=== PATIENT | male | born 1970 | race Caucasian/White ===

== ENCOUNTER → 2019-12-31 14:59 | Outpatient (CLI) | payer OTHER, SELFPAY ==
--- NOTE | 2019-12-31 | DI.RAD.S_ITS ---
PROCEDURE: XR CHEST 2V INDICATIONS: CHRONIC COUGH TECHNIQUE: 2 views of the chest were acquired. COMPARISON: None. FINDINGS: Surgical changes and devices: None. Lungs and pleura: Lungs are clear. A presumed right-sided nipple shadow incidentally noted No pleural effusions or pneumothorax. Mediastinum: Mediastinal contours are normal. Heart size is normal. Bones and chest wall: No suspicious bony abnormalities. Soft tissues appear unremarkable. IMPRESSION: No acute disease Dictated by: Pineda Toscano M.D. on 12/31/2019 at 16:31 Approved by: Pineda Toscano M.D. on 12/31/2019 at 16:34
== END ==
PROVIDERS: PCP Family Medicine; Referring Provider Family Medicine; Visit Provider Family Medicine
DX: R05 Cough (principal)
CPT/HCPCS: 71046

== ENCOUNTER → 2020-08-01 14:07 | Outpatient (CLI) | payer OTHER, SELFPAY ==
[2020-08-01 15:14] LABS: Add Manual Diff / Slide Review NO; Basophils Absolute Auto 0 /uL (0-100); Basophils Percent Auto 0.7 % (0-2); Eosinophils Absolute Auto 100 /uL (0-450); Eosinophils Percent Auto 1.5 % (2-4); Hematocrit 45.1 % (41-53); Hemoglobin 15.3 g/dL (13.5-17.5); Lymphocytes Absolute Auto 2300 /uL (1100-4500); Lymphocytes Percent Auto 32.7 % (25-40); Mean Corpuscular Hemoglobin 30.5 PG (26-34); Mean Corpuscular Volume 89.7 fL (80-100); Monocytes Absolute Auto 500 /uL (0-900); Monocytes Percent Auto 7.4 % (3-14); Neutrophils Absolute Auto 4000 /uL (1500-7000); Neutrophils Percent Auto 57.7 % (50-75); Platelet Count 277 X10^3/uL (150-400); Red Blood Cell Count 5.02 X10^6/uL (4.5-5.9); Red Cell Distribution Width 13.1 % (11.6-14.8); White Blood Cell Count 6.9 X10^3/uL (4.5-11.0)
[2020-08-01 15:26] LABS: Hemoglobin A1C% w Est Avg Glu 5.6 % (4.0-6.0)
[2020-08-01 16:06] LABS: Alanine Aminotransferase 30 IU/L (<50); Albumin 4.5 g/dL (3.5-5.0); Albumin Globulin Ratio 1.7 (1.0-2.8); Alkaline Phosphatase 40 U/L (38-126); Aspartate Aminotransferase 29 IU/L (17-59); BUN Creatinine Ratio 13.3 (6-22); Bilirubin Total 1.1 mg/dL (0.2-1.3); Blood Urea Nitrogen 12 mg/dL (9-20); Calcium 9.4 mg/dL (8.4-10.2); Carbon Dioxide 31 mmol/L (22-32); Chloride 101 mmol/L (98-107); Cholesterol 211 mg/dL (140-199); Estimated Glomerular Filt Rate > 60.0 mL/min (>60); Globulin 2.7 g/dL (1.7-4.1); Glucose 79 mg/dL (70-100); HDL Cholesterol 47 mg/dL (40-60); HEMOLYSIS < 15 (0-50); LDL Cholesterol Calculated 149 mg/dL (<100); Potassium 4.4 mmol/L (3.4-5.1); Sodium 140 mmol/L (137-145); Total Protein 7.2 g/dL (6.3-8.2); Triglycerides 75 mg/dL (35-150)
[2020-08-01 16:33] LABS: TSH w/ Reflex to FT4 0.99 uIU/mL (0.47-4.68)
== END ==
PROVIDERS: PCP Family Medicine; Referring Provider Family Medicine; Visit Provider Family Medicine
DX: Z00.00 Encounter for general adult medical examination without abnormal findings (principal)
CPT/HCPCS: 36415; 80053; 80061; 83036; 84443; 85025

== ENCOUNTER → 2020-08-24 10:32 | Outpatient (CLI) | payer OTHER, SELFPAY ==
[2020-08-25 14:03] LABS: COVID19 Sendout Not Detected (Not Detect)
== END ==
PROVIDERS: PCP Family Medicine; Visit Provider Nurse Practitioner
DX: J02.9 Acute pharyngitis, unspecified (principal); R05 Cough; R09.81 Nasal congestion; R50.9 Fever, unspecified; R52 Pain, unspecified; R53.83 Other fatigue
CPT/HCPCS: 87635

== ENCOUNTER 2021-05-15 15:37 | Emergency (ER) | payer OTHER, SELFPAY ==
[2021-05-15 15:43] VITALS: BP 132/79; PULSE 108; RESP 15; TEMP 36.6; O2SAT 96; BMI 25.1
== END 2021-05-15 17:56 | disposition left against medical advice (07) ==
PROVIDERS: Emergency Provider Emergency Medicine; PCP Family Medicine
DX: R10.9 Unspecified abdominal pain (principal)
CPT/HCPCS: 36415; 99283

== ENCOUNTER 2025-06-30 13:34 | Emergency (ER) | payer BC, SELFPAY ==
[2025-06-30] VITALS (7 sets, daily range): BP systolic 105–154; BP diastolic 71–92; PULSE 67–86; RESP 16–20; TEMP 37.1; O2SAT 91–100; BMI 25.7
--- NOTE | 2025-06-30 13:59 | ED.ABDPAIN ---
HPI - Abdominal Pain <Eduarda Santana PA-C - Last Filed: 06/30/25 18:43> General Chief Complaint: Abdominal Pain Stated Complaint: Possible hernia Time Seen by Provider: 06/30/25 13:54 History of Present Illness HPI narrative: Mr. Linares is a pleasant 54-year-old male with a past medical history of diverticulitis who presents to the emergency department for left lower quadrant abdominal pain, bulging, constipation x1 week. Patient reports he has had bulging in his lower abdomen, concerned for hernia, for the last 5 years. It has not caused him any issues though. However this past week he has been extremely constipated despite having a liquid diet and using stool softeners. He has noticed that this bulge has got and more prominent. It is soft, nontender, non erythematous. He denies any burning or difficulty with urination but does report significant pain when his bladder is full. He denies fevers, chills, chest pain, shortness of breath, black or bloody stools. He does have surgical history of hemorrhoidectomy and prior CT imaging revealing diverticulitis but was told by a surgeon that he did not have this. Related Data Home Medications ?Medication ?Instructions ?Recorded ?Confirmed ascorbic acid (vitamin C) 500 mg 500 mg PO DAILY 06/26/20 07/04/25 capsule,extended release cholecalciferol (vitamin D3) 125 125 mcg PO DAILY 06/26/20 07/04/25 mcg (5,000 unit) capsule Previous Rx's ?Medication ?Instructions ?Recorded ciprofloxacin HCl 250 mg tablet 250 mg PO BID #14 tabs 07/04/25 dicyclomine 20 mg tablet 20 mg PO TID PRN abdominal pain 07/04/25 #30 tabs metronidazole 250 mg tablet 250 mg PO Q12H #14 tabs 07/04/25 turmeric 400 mg capsule 200 mg (1/2 x 400 mg) PO .qd #1 cap 07/04/25 Allergies Allergy/AdvReac Type Severity Reaction Status Date / Time No Known Drug Allergies Allergy Verified 07/04/25 08:18 Review of Systems <Eduarda Santana PA-C - Last Filed: 06/30/25 18:43> Review of Systems ROS Unobtainable: All systems reviewed & are unremarkable except as noted in HPI and below Patient History <Eduarda Santana PA-C - Last Filed: 06/30/25 18:43> Medical History Dyspepsia Direct left inguinal hernia Hyperlipidemia Contraceptive education Tobacco abuse Well adult Surgical History Anesthesia History of appendectomy (~1975) Family History Father Hypertension Mother Arthritis Grandmother Cancer Hypertension Stroke Social History Tobacco: How many years used: 30 quit status: has quit before second hand exposure: No alcohol intake: current (2-3 drinks every 2 months or more ) substance use type: does not use alcohol intake frequency: holidays/special occasions only Exam <Eduarda Santana PA-C - Last Filed: 06/30/25 18:43> Narrative Exam Narrative: GENERAL: 54 year old patient appears stated age. Well-developed patient, in no acute distress. HEAD: Atraumatic. Normocephalic. EYES: No scleral icterus. No injection or drainage. NECK: Trachea midline. Cervical ROM intact. CARDIOVASCULAR: Regular rate and rhythm. RESPIRATORY: Nonlabored respirations. ?Speaking in clear, full sentences. ?Clear to auscultation. Breath sounds equal bilaterally. No wheezes, rales, or rhonchi. ? GASTROINTESTINAL: Abdomen soft, non-tender, nondistended. Bowel sounds present. He does have a bulge in the left lower quadrant of the abdomen/inguinal region that is soft and easily compressible. EXTREMITIES: No LE edema. NEURO: AOx3. ?Clear speech. ?Moves all 4 extremities appropriately. SKIN: No rash or erythema of visible areas Initial Vital Signs Initial Vital Signs: Vital Signs Temperature 98.8 F 06/30/25 13:42 Pulse Rate 84 06/30/25 13:42 Respiratory Rate 16 06/30/25 13:42 Blood Pressure 121/78 06/30/25 13:42 Pulse Oximetry 100 06/30/25 13:42 Oxygen Delivery Method Room Air 06/30/25 13:42 <Viridiana Sosa MD - Last Filed: 07/05/25 09:31> Initial Vital Signs Initial Vital Signs: Vital Signs Temperature 98.8 F 06/30/25 13:42 Pulse Rate 84 06/30/25 13:42 Respiratory Rate 16 06/30/25 13:42 Blood Pressure 121/78 06/30/25 13:42 Pulse Oximetry 100 06/30/25 13:42 Oxygen Delivery Method Room Air 06/30/25 13:42 Course <Eduarda Santana PA-C - Last Filed: 06/30/25 18:43> Orders Ordered: Discontinued Medications Piperacillin Sod/Tazobactam (Sod 4.5 gm/ Sodium Chloride) 100 mls @ 200 mls/hr IV NOW ONE Stop: 06/30/25 15:25 Last Infusion: 06/30/25 16:29 Dose: Infused Documented By: Admin: 06/30/25 15:53 Dose: 200 mls/hr Documented By: FRANCISCO Vital Signs Vital signs: Vital Signs - 8 hr 06/30/25 13:42 06/30/25 15:36 06/30/25 15:37 Temperature 98.8 F Pulse Rate 84 86 Respiratory Rate 16 16 Blood Pressure 121/78 154/92 H Pulse Oximetry 100 91 Oxygen Delivery Method Room Air 06/30/25 15:37 06/30/25 15:39 06/30/25 15:39 Temperature Pulse Rate 82 77 Respiratory Rate Blood Pressure 136/84 Pulse Oximetry 97 100 Oxygen Delivery Method 06/30/25 16:00 06/30/25 16:00 06/30/25 16:30 Temperature Pulse Rate 77 Respiratory Rate 16 Blood Pressure 125/77 105/71 Pulse Oximetry 99 Oxygen Delivery Method 06/30/25 16:30 06/30/25 17:00 06/30/25 17:00 Temperature Pulse Rate 67 68 Respiratory Rate 16 20 Blood Pressure 115/71 Pulse Oximetry 96 97 Oxygen Delivery Method <Viridiana Sosa MD - Last Filed: 07/05/25 09:31> Orders Ordered: Discontinued Medications Piperacillin Sod/Tazobactam (Sod 4.5 gm/ Sodium Chloride) 100 mls @ 200 mls/hr IV NOW ONE Stop: 06/30/25 15:25 Last Infusion: 06/30/25 16:29 Dose: Infused Documented By: Admin: 06/30/25 15:53 Dose: 200 mls/hr Documented By: AI Vital Signs Vital signs: Vital Signs - 8 hr 06/30/25 13:42 06/30/25 15:36 06/30/25 15:37 Temperature 98.8 F Pulse Rate 84 86 Respiratory Rate 16 16 Blood Pressure 121/78 154/92 H Pulse Oximetry 100 91 Oxygen Delivery Method Room Air 06/30/25 15:37 06/30/25 15:39 06/30/25 15:39 Temperature Pulse Rate 82 77 Respiratory Rate Blood Pressure 136/84 Pulse Oximetry 97 100 Oxygen Delivery Method 06/30/25 16:00 06/30/25 16:00 06/30/25 16:30 Temperature Pulse Rate 77 Respiratory Rate 16 Blood Pressure 125/77 105/71 Pulse Oximetry 99 Oxygen Delivery Method 06/30/25 16:30 06/30/25 17:00 06/30/25 17:00 Temperature Pulse Rate 67 68 Respiratory Rate 16 20 Blood Pressure 115/71 Pulse Oximetry 96 97 Oxygen Delivery Method MDM - Abdominal Pain <Eduarda Santana PA-C - Last Filed: 06/30/25 18:43> Medical Records Attestation: I reviewed the patient's medical records. Medical records narrative: Reviewed surgery note, Dr. Vidales, 05/28/21, with a CT abdomen and pelvis revealing markedly thickened sigmoid colon with inflammatory change most consistent with colitis secondary to diverticulitis. 1.3 cm right lower lobe nodule as well. Lab Data 06/30/25 14:00 06/30/25 14:00 Labs: Lab Results 06/30/25 Range/Units 14:00 WBC 11.9 H (4.5-11.0) X10^3/uL RBC 4.63 (4.5-5.9) X10^6/uL Hgb 14.8 (13.5-17.5) g/dL Hct 42.1 (41-53) % MCV 90.8 (80-100) fL MCH 32.0 (26-34) PG MCHC 35.2 (30-36) % RDW 12.7 (11.6-14.8) % Plt Count 334 (150-400) X10^3/uL Neut % (Auto) 77.4 H (50-75) % Lymph % (Auto) 13.8 L (25-40) % [place] % (Auto) 8.0 (3-14) % Eos % (Auto) 0.3 L (2-4) % Baso % (Auto) 0.5 (0-2) % Neut # (Auto) 9200 H (1125-7949) /uL Lymph # (Auto) 1600 (3001-4233) /uL [place] # (Auto) 1000 H (0-900) /uL Eos # (Auto) 0 (0-450) /uL Baso # (Auto) 100 (0-100) /uL Sodium 140 (137-145) mmol/L Potassium 4.0 (3.4-5.1) mmol/L Chloride 101 (98-107) mmol/L Carbon Dioxide 29 (22-32) mmol/L BUN 9 (9-20) mg/dL Creatinine 0.85 (0.66-1.25) mg/dL Estimated GFR > 60 (>60) mL/min BUN/Creatinine Ratio 10.6 (6-22) Glucose 98 (70-99) mg/dL Calcium 9.4 (8.4-10.2) mg/dL Total Bilirubin 0.9 (0.2-1.3) mg/dL AST 25 (17-59) IU/L ALT 22 (<50) IU/L Alkaline Phosphatase 50 (38-126) U/L Total Protein 7.9 (6.3-8.2) g/dL Albumin 4.4 (3.5-5.0) g/dL Globulin 3.5 (1.7-4.1) g/dL Albumin/Globulin Ratio 1.3 (1.0-2.8) Lipase 112 (23-300) U/L Ur Bilirubin Confirm Negative (Negative) Urine RBC None seen (0-5/HPF) Urine WBC 1-5/hpf (0-5/HPF) Ur Squamous Epith Cells None seen (0-5/HPF) Urine Bacteria None seen (None) Ur Culture Indicated? Cult not indicated Vol Urine Centrifuged Low vol <10ml (spun) A Point of care testing: Urine Dip Bedside Urine Glucose Negative Bedside Urine Bilirubin + 1 Bedside Urine Ketone +/- 5 Urine Specific [place] 1.025 Bedside Urine Occult Blood - Negative Bedside Urine pH 6.0 Bedside Urine Protein +/- 15 Bedside Urine Urobilinogen +/- 1mg Bedside Urine Nitrite - Negative Bedside Urine Leukocytes +/- [address] scan - abdomen/pelvis: Radiologist's Impression: PROCEDURE: CT ABDOMEN PELVIS W CON INDICATIONS: LLQ abd pain bulging; constipation; hernia/diverticulitis? TECHNIQUE: After the administration of intravenous contrast, axial sections acquired from the lung bases to the pubic symphysis. Coronal and sagittal reformats were performed. For radiation dose reduction, the following was used: automated exposure control, adjustment of mA and/or kV according to patient size. COMPARISON: [facility], CT, CT ABDOMEN PELVIS WITH CONTRAST, 05/15/2021, 23:53. FINDINGS: Image quality: Diagnostic. Lower Chest: Lobular solid nodule within the right lower lobe measuring 1.3 cm, unchanged in measurements from 05/15/2021. 05/15/2021. ABDOMEN: Liver: No solid mass. Gallbladder: No radiopaque gallstones or wall thickening. Biliary ducts: No biliary dilation. Pancreas: No ductal dilation. Spleen: Size is within normal limits. Adrenal Glands: No adrenal nodules. Kidneys and Ureters: No hydronephrosis. No solid mass. No complex renal cystic lesion which requires follow up. Stomach and Bowel: Significant wall thickening with pericolonic edema within surrounding sigmoid colon. A few small foci of air adjacent to the inflamed areas with slight fluid suggesting contained perforation. No drainable organized fluid collection is present. of Peritoneum: No abnormal intraperitoneal fluid. No free air. Ventral Wall: No significant ventral hernia. Abdominal Nodes: No retroperitoneal or mesenteric adenopathy by size criteria. Vessels: Aorta and inferior vena cava are normal in size. PELVIS: Pelvic Organs: Unremarkable. Bladder: No bladder wall thickening, accounting for underdistention. Pelvic Nodes: No enlarged lymph nodes. Miscellaneous: No inguinal hernias are seen. Bones: No aggressive osseous abnormality. IMPRESSION: Contained acute sigmoid diverticulitis. Dictated by: Arnoldo Nguyen M.D. on 06/30/2025 at 14:07 Approved by: Arnoldo Nguyen M.D. on 06/30/2025 at 14:15 MDM Narrative Medical decision making narrative: 54-year-old male with a past medical history of diverticulitis who presents to the emergency department for left lower quadrant abdominal pain, bulging, constipation x1 week. Differential diagnosis includes but isn't limited to inguinal hernia, constipation, diverticulitis, colitis, diverticulosis, UTI, etc. On exam patient is in no acute distress, nontoxic-appearing, all vital signs within normal limits. Abdomen is soft and nontender, he does have a bulge in the left inguinal region that is soft and reducible, likely hernia but not concerning for strangulation or incarceration clinically. Given his pain, constipation, worsening hernia, will obtain CT AP. He declines the need for medication at this time. Labs reveal slightly elevated WBC at 11.9, hemoglobin 14.8 hematocrit 42.1. Platelets 334. Normal electrolytes, renal function, liver enzymes. UA with some signs of possible dehydration/contamination. CT reveals contained acute sigmoid diverticulitis, there are a few small foci of air adjacent to the inflamed areas with slight fluid suggesting contained perforation. Wilber ordered. 1530: Spoke with on-call gen surg Dr. Jovel. States patient can go home on 2 weeks of oral antibiotics, pain control, MiraLax if his symptoms are under control. No surgical intervention recommended at this time. Patient can not go home he should be admitted to the hospital obs and he will consult. Patient would like to be discharged home. His abdominal exam is nonsurgical. Recommended supportive care including liquid diet, rest, ibuprofen Tylenol for pain, MiraLax daily. He was prescribed Augmentin for 2 weeks. And to follow up with the PCP. Discussed very strict ED return precautions including return for any new or worsening symptoms including pain, fevers, abnormal bowel movements or any other concerns. Patient his verbalized understanding of all information agreeable with the plan. He is stable for discharge home. <Viridiana Sosa MD - Last Filed: 07/05/25 09:31> Lab Data Labs: Lab Results 06/30/25 Range/Units 14:00 WBC 11.9 H (4.5-11.0) X10^3/uL RBC 4.63 (4.5-5.9) X10^6/uL Hgb 14.8 (13.5-17.5) g/dL Hct 42.1 (41-53) % MCV 90.8 (80-100) fL MCH 32.0 (26-34) PG MCHC 35.2 (30-36) % RDW 12.7 (11.6-14.8) % Plt Count 334 (150-400) X10^3/uL Neut % (Auto) 77.4 H (50-75) % Lymph % (Auto) 13.8 L (25-40) % [place] % (Auto) 8.0 (3-14) % Eos % (Auto) 0.3 L (2-4) % Baso % (Auto) 0.5 (0-2) % Neut # (Auto) 9200 H (8816-6447) /uL Lymph # (Auto) 1600 (3686-4960) /uL [place] # (Auto) 1000 H (0-900) /uL Eos # (Auto) 0 (0-450) /uL Baso # (Auto) 100 (0-100) /uL Sodium 140 (137-145) mmol/L Potassium 4.0 (3.4-5.1) mmol/L Chloride 101 (98-107) mmol/L Carbon Dioxide 29 (22-32) mmol/L BUN 9 (9-20) mg/dL Creatinine 0.85 (0.66-1.25) mg/dL Estimated GFR > 60 (>60) mL/min BUN/Creatinine Ratio 10.6 (6-22) Glucose 98 (70-99) mg/dL Calcium 9.4 (8.4-10.2) mg/dL Total Bilirubin 0.9 (0.2-1.3) mg/dL AST 25 (17-59) IU/L ALT 22 (<50) IU/L Alkaline Phosphatase 50 (38-126) U/L Total Protein 7.9 (6.3-8.2) g/dL Albumin 4.4 (3.5-5.0) g/dL Globulin 3.5 (1.7-4.1) g/dL Albumin/Globulin Ratio 1.3 (1.0-2.8) Lipase 112 (23-300) U/L Ur Bilirubin Confirm Negative (Negative) Urine RBC None seen (0-5/HPF) Urine WBC 1-5/hpf (0-5/HPF) Ur Squamous Epith Cells None seen (0-5/HPF) Urine Bacteria None seen (None) Ur Culture Indicated? Cult not indicated Vol Urine Centrifuged Low vol <10ml (spun) A Point of care testing: Urine Dip Bedside Urine Glucose Negative Bedside Urine Bilirubin + 1 Bedside Urine Ketone +/- 5 Urine Specific [place] 1.025 Bedside Urine Occult Blood - Negative Bedside Urine pH 6.0 Bedside Urine Protein +/- 15 Bedside Urine Urobilinogen +/- 1mg Bedside Urine Nitrite - Negative Bedside Urine Leukocytes +/- 15 Esterase Discharge Plan Departure Patient Disposition: Home Clinical Impression: Diverticulitis Instructions: DI for Diverticulitis Activity Restrictions/Additional Instructions: Dear Mr. Linares, Thank you for coming to the emergency department. Today you were evaluated for constipation, left lower abdominal bulging and pain. CT scan revealed diverticulitis with a possible small perforation that is contained. I spoke with our on-call general surgeon, Dr. Jovel. At this time there is no indication for emergency surgery and you can be treated with 2 weeks of oral antibiotics. It is also very important to take MiraLax daily to help soften stools, you may also use ibuprofen and Tylenol if needed for pain. I do recommend a clear liquid diet for at least the next 24 hours, followed by 2-3 days of a normal liquid diet and then increasing to a soft and normal diet as tolerated. Please follow up with your primary care doctor. Please return to the emergency department if you develop fevers, severe pain, persistent vomiting, black or bloody bowel movements or any other concerns. Please follow up with your primary care doctor within the next 2-3 days for ER follow-up. (If you do not have a PCP you can call [phone]. ?to schedule an appointment with an [facility] Primary Care Provider) IF YOU DEVELOP ANY NEW OR WORSENING SYMPTOMS, RETURN TO THE ER! Please read the attached instructions, they highlight more specific treatments and interventions for you at home. Thank you for letting me participate in your care, Eduarda Santana PA-C Prescriptions: No Action turmeric 400 mg capsule 200 mg PO .qd Qty: 1 0RF metronidazole 250 mg tablet 250 mg PO Q12H Qty: 14 0RF ciprofloxacin HCl 250 mg tablet 250 mg PO BID Qty: 14 0RF dicyclomine 20 mg tablet 20 mg PO TID PRN (Reason: abdominal pain) Qty: 30 1RF Rx Instructions: Take as needed with meals cholecalciferol (vitamin D3) 125 mcg (5,000 unit) capsule 125 mcg PO DAILY ascorbic acid (vitamin C) 500 mg capsule, extended release 500 mg PO DAILY Referrals: Jose Cody, DO [Primary Care Provider, Family Practice] Stand Alone Forms: Patient Portal/API, Work Release Note ED Sign-out <Viridiana Sosa MD - Last Filed: 07/05/25 09:31> Cosign ED Attending Cosmary louature Attestation: I was immediately available in the department for consultation throughout this patient's visit. Viridiana Sosa MD
--- NOTE | 2025-06-30 14:09 | DI.CT.S_ITS ---
PROCEDURE: CT ABDOMEN PELVIS W CON INDICATIONS: LLQ abd pain bulging; constipation; hernia/diverticulitis? TECHNIQUE: After the administration of intravenous contrast, axial sections acquired from the lung bases to the pubic symphysis. Coronal and sagittal reformats were performed. For radiation dose reduction, the following was used: automated exposure control, adjustment of mA and/or kV according to patient size. COMPARISON: [facility], CT, CT ABDOMEN PELVIS WITH CONTRAST, 05/15/2021, 23:53. FINDINGS: Image quality: Diagnostic. Lower Chest: Lobular solid nodule within the right lower lobe measuring 1.3 cm, unchanged in measurements from 05/15/2021. 05/15/2021. ABDOMEN: Liver: No solid mass. Gallbladder: No radiopaque gallstones or wall thickening. Biliary ducts: No biliary dilation. Pancreas: No ductal dilation. Spleen: Size is within normal limits. Adrenal Glands: No adrenal nodules. Kidneys and Ureters: No hydronephrosis. No solid mass. No complex renal cystic lesion which requires follow up. Stomach and Bowel: Significant wall thickening with pericolonic edema within surrounding sigmoid colon. A few small foci of air adjacent to the inflamed areas with slight fluid suggesting contained perforation. No drainable organized fluid collection is present. of Peritoneum: No abnormal intraperitoneal fluid. No free air. Ventral Wall: No significant ventral hernia. Abdominal Nodes: No retroperitoneal or mesenteric adenopathy by size criteria. Vessels: Aorta and inferior vena cava are normal in size. PELVIS: Pelvic Organs: Unremarkable. Bladder: No bladder wall thickening, accounting for underdistention. Pelvic Nodes: No enlarged lymph nodes. Miscellaneous: No inguinal hernias are seen. Bones: No aggressive osseous abnormality. IMPRESSION: Contained acute sigmoid diverticulitis. Dictated by: Arnoldo Nguyen M.D. on 06/30/2025 at 14:07 Approved by: Arnoldo Nguyen M.D. on 06/30/2025 at 14:15
[2025-06-30 14:16] LABS: Add Manual Diff / Slide Review NO; Hematocrit 42.1 % (41-53); Hemoglobin 14.8 g/dL (13.5-17.5); Lymphocytes Absolute Auto 1600 /uL (1100-4500); Mean Corpuscular HGB Conc 35.2 % (30-36); Mean Corpuscular Hemoglobin 32.0 PG (26-34); Mean Corpuscular Volume 90.8 fL (80-100); Platelet Count 334 X10^3/uL (150-400)
[2025-06-30 14:26] LABS: Alanine Aminotransferase 22 IU/L (<50); Albumin 4.4 g/dL (3.5-5.0); Albumin Globulin Ratio 1.3 (1.0-2.8); Alkaline Phosphatase 50 U/L (38-126); Blood Urea Nitrogen 9 mg/dL (9-20); Calcium 9.4 mg/dL (8.4-10.2); Carbon Dioxide 29 mmol/L (22-32); Chloride 101 mmol/L (98-107); Estimated Glomerular Filt Rate > 60 mL/min (>60); Globulin 3.5 g/dL (1.7-4.1); Glucose 98 mg/dL (70-99); HEMOLYSIS < 15 (0-50); Ictotest Urine Negative (Negative); Lipase 112 U/L (23-300); Potassium 4.0 mmol/L (3.4-5.1); Sodium 140 mmol/L (137-145); Total Protein 7.9 g/dL (6.3-8.2)
[2025-06-30 14:33] LABS: Culture Indicated Urine Cult Not Indicated
[2025-06-30] MEDS: PIPERACILLIN/TAZO 4.5 GM in SODIUM CHLORIDE 0.9% 100 ML IV (15:53)
== END 2025-06-30 17:13 | disposition home or self-care (01) ==
PROVIDERS: Emergency Provider Physician Assistant; PCP Family Medicine
DX: K57.32 Diverticulitis of large intestine without perforation or abscess without bleeding (principal)
CPT/HCPCS: 36415; 74177; 80053; 81003; 81015; 83690; 85025; 96365; 99284; J2543; Q9967

== ENCOUNTER → 2025-07-18 13:16 | Outpatient (CLI) | payer BC, SELFPAY ==
[2025-07-07 16:52] VITALS: BMI 23.0
== END ==
LOC: WC 13:17
PROVIDERS: Family Provider Family Medicine; PCP Family Medicine; Referring Provider Family Medicine; Visit Provider Surgery
DX: K94.09 Other complications of colostomy (principal); S31.101A Unspecified open wound of abdominal wall, left upper quadrant without penetration into peritoneal cavity, initial encounter
CPT/HCPCS: 99203; 99215

== ENCOUNTER → 2025-07-24 14:05 | Outpatient (CLI) | payer OTHER, SELFPAY ==
[2025-07-07 16:52] VITALS: BMI 23.0
== END ==
LOC: WC 14:50
PROVIDERS: PCP Family Medicine; Referring Provider Family Medicine; Visit Provider Physician Assistant
DX: K94.00 Colostomy complication, unspecified (principal)
CPT/HCPCS: 99212; 99213

== ENCOUNTER → 2025-07-31 14:42 | Outpatient (CLI) | payer OTHER, SELFPAY ==
[2025-07-07 16:52] VITALS: BMI 23.0
== END ==
LOC: WC 14:42
PROVIDERS: PCP Family Medicine; Referring Provider Family Medicine; Visit Provider Surgery
DX: K94.09 Other complications of colostomy (principal); S31.101A Unspecified open wound of abdominal wall, left upper quadrant without penetration into peritoneal cavity, initial encounter
CPT/HCPCS: 99213

== ENCOUNTER → 2025-08-07 10:16 | Outpatient (CLI) | payer OTHER, SELFPAY ==
[2025-07-07 16:52] VITALS: BMI 23.0
== END ==
LOC: WC 10:16
PROVIDERS: PCP Family Medicine; Referring Provider Family Medicine; Visit Provider Surgery
DX: K94.00 Colostomy complication, unspecified (principal); L92.8 Other granulomatous disorders of the skin and subcutaneous tissue
CPT/HCPCS: 17250; 99213

== ENCOUNTER → 2025-08-14 11:25 | Outpatient (CLI) | payer OTHER, SELFPAY ==
[2025-07-07 16:52] VITALS: BMI 23.0
== END ==
LOC: WC 11:26
PROVIDERS: PCP Family Medicine; Referring Provider Family Medicine; Visit Provider Surgery
DX: K94.00 Colostomy complication, unspecified (principal); L92.8 Other granulomatous disorders of the skin and subcutaneous tissue
CPT/HCPCS: 17250; 99213

== ENCOUNTER 2025-08-18 09:18 | Inpatient (IN) | payer OTHER, SELFPAY ==
[2025-07-07 16:52] VITALS: BMI 23.0
[2025-08-18] VITALS (19 sets, daily range): BP systolic 118–153; BP diastolic 64–85; PULSE 57–89; RESP 12–22; TEMP 36.2–36.6; O2SAT 94–100; BMI 15.7
--- NOTE | 2025-08-18 09:39 | ED_ITS ---
HPI - Abdominal Pain General Chief Complaint: Abdominal Pain Stated Complaint: Severe pain upper abd - localized at stomach Time Seen by Provider: 08/18/25 09:36 Source: patient Mode of arrival: Ambulatory History of Present Illness HPI narrative: Patient 55-year-old male history of hyperlipidemia diverticulitis with recent admission July 07 through July 12 where he had large bowel obstruction which required open sigmoid resection with end-colostomy. Presenting today with upper abdominal pain. He reports he had a normal day yesterday he did have some mild upper respiratory symptoms but no significant fever overall that is feeling better now having pretty significant epigastric pain. Denies any nausea reports he had normal ostomy output today. No chest pain no palpitations. He had some coffee this morning he feels like maybe it got worse with that. No lower abdominal pain. Pain comes and goes in waves Related Data Home Medications ?Medication ?Instructions ?Recorded ?Confirmed ascorbic acid (vitamin C) 500 mg 500 mg PO DAILY 06/2607/23/25 capsule,extended release cholecalciferol (vitamin D3) 125 125 mcg PO DAILY 05/1007/23/25 mcg (5,000 unit) capsule Allergies Allergy/AdvReac Type Severity Reaction Status Date / Time No Known Drug Allergies Allergy Verified 08/18/25 09:34 Patient History Medical History Dyspepsia Direct left inguinal hernia Hyperlipidemia Contraceptive education Tobacco abuse Well adult Surgical History Anesthesia History of appendectomy (~1975) Family History Father Hypertension Mother Arthritis Grandmother Cancer Hypertension Stroke Social History household members: spouse and children Smoking Status: Former smoker Tobacco: How many years used: 30 quit status: has quit before second hand exposure: No alcohol intake: former substance use type: does not use Smoking Status: Former smoker alcohol intake frequency: holidays/special occasions only Exam Initial Vital Signs Initial Vital Signs: Vital Signs Pulse Oximetry 94 08/18/25 09:29 GENERAL: Alert pleasant 55-year-old male appears uncomfortable and in [no acute] distress. HEENT: Head atraumatic,EOMI, pupils reactive, face symmetric, [moist] mucous membranes CARDIOVASCULAR: Regular rate and rhythm without murmurs, rubs or gallops. RESPIRATORY: Breath sounds equal bilaterally, no wheezes rales or rhonchi. ABDOMEN: Soft, tender epigastric region no significant right upper quadrant pain rest of abdomen is soft ostomy noted left lower quadrant minimal tenderness in the left lower quadrant EXTREMITIES: Normal range of motion, no clubbing or edema. Neurovascularly intact NEUROLOGICAL: Alert and oriented x4.Normal gait and speech. Cranial nerves II through XII grossly intact. SKIN: Warm, dry, no laceration, no petechiae, no rashes or lesions. Course Orders Ordered: ED Orders 08/18/25 09:37 CT abdomen pelvis w con Stat XR chest 1V Stat [facility] Creatine Kinase MB Routine EKG-12 Lead Stat 08/18/25 09:39 Complete Blood Count AUTO DIFF Stat Comprehensive Metabolic Panel Stat Lactate (Lactic Acid) Stat Lipase Stat Magnesium Stat NT-proBNP (BNP-Adult 18+) Stat Troponin & CK Cardiac Panel Stat Lactated Ringer's (Lactated Ringers) 1,000 mls @ 42 mls/hr IV CONT JUSTIN Discontinued Medications Hydromorphone HCl (Hydromorphone Hcl 0.5 Mg/0.5 Ml Syringe) 0.5 mg IV NOW ONE Stop: 08/18/25 09:38 Last Admin: 08/18/25 09:43 Dose: 0.5 mg Documented By: Acetaminophen (Ofirmev) 1,000 mg in 100 mls @ 400 mls/hr IV NOW ONE Stop: 08/18/25 12:53 Pantoprazole Sodium (Pantoprazole 40 Mg Vial) 40 mg IV NOW ONE Stop: 08/18/25 09:43 Last Admin: 08/18/25 09:48 Dose: 40 mg Documented By: Vital Signs Vital signs: Vital Signs - 8 hr 08/18/25 09:29 08/18/25 09:30 08/18/25 09:30 Temperature Pulse Rate 67 Respiratory Rate Blood Pressure 150/71 H Pulse Oximetry 94 100 Oxygen Delivery Method 08/18/25 09:34 08/18/25 10:05 08/18/25 10:30 Temperature 97.8 F Pulse Rate 68 74 57 L Respiratory Rate 18 Blood Pressure 150/71 H Pulse Oximetry 100 100 96 Oxygen Delivery Method Room Air 08/18/25 10:54 08/18/25 10:54 08/18/25 11:00 Temperature Pulse Rate 59 L Respiratory Rate Blood Pressure 128/67 132/68 Pulse Oximetry 100 Oxygen Delivery Method 08/18/25 11:00 08/18/25 11:15 08/18/25 11:15 Temperature Pulse Rate 57 L 61 Respiratory Rate 12 18 Blood Pressure 125/67 Pulse Oximetry 99 94 Oxygen Delivery Method 08/18/25 11:30 08/18/25 12:00 08/18/25 12:21 Temperature Pulse Rate 69 63 75 Respiratory Rate 16 18 Blood Pressure Pulse Oximetry 100 98 96 Oxygen Delivery Method 08/18/25 12:21 08/18/25 12:30 08/18/25 12:30 Temperature Pulse Rate 62 Respiratory Rate 17 Blood Pressure 149/75 H 128/73 Pulse Oximetry 100 Oxygen Delivery Method MDM - Abdominal Pain Lab Data 08/18/25 09:39 08/18/25 09:39 Labs: Lab Results 08/18/25 08/18/25 Range/Units 09:39 11:30 WBC 5.7 (4.5-11.0) X10^3/uL RBC 4.91 (4.5-5.9) X10^6/uL Hgb 15.3 (13.5-17.5) g/dL Hct 43.6 (41-53) % MCV 88.8 (80-100) fL MCH 31.1 (26-34) PG MCHC 35.0 (30-36) % RDW 13.2 (11.6-14.8) % Plt Count 286 (150-400) X10^3/uL Neut % (Auto) 55.6 (50-75) % Lymph % (Auto) 34.1 (25-40) % [place] % (Auto) 8.2 (3-14) % Eos % (Auto) 1.4 L (2-4) % Baso % (Auto) 0.7 (0-2) % Neut # (Auto) 3200 (1927-8187) /uL Lymph # (Auto) 2000 (6649-5314) /uL [place] # (Auto) 500 (0-900) /uL Eos # (Auto) 100 (0-450) /uL Baso # (Auto) 0 (0-100) /uL Sodium 137 (137-145) mmol/L Potassium 4.3 (3.4-5.1) mmol/L Chloride 103 (98-107) mmol/L Carbon Dioxide 24 (22-32) mmol/L BUN 11 (9-20) mg/dL Creatinine 0.75 (0.66-1.25) mg/dL Estimated GFR > 60 (>60) mL/min BUN/Creatinine Ratio 14.7 (6-22) Glucose 113 H (70-99) mg/dL Lactate 2.1 1.2 (0.7-2.1) mmol/L Calcium 9.6 (8.4-10.2) mg/dL Magnesium 2.0 (1.6-2.3) mg/dL Total Bilirubin 0.9 (0.2-1.3) mg/dL AST 29 (17-59) IU/L ALT 28 (<50) IU/L Alkaline Phosphatase 47 (38-126) U/L Total Creatine Kinase 81 (55-170) U/L Troponin I < 0.012 (0.01-0.034) ng/mL NT-Pro-B Natriuret Pep 40 (<125) pg/mL Total Protein 7.9 (6.3-8.2) g/dL Albumin 4.8 (3.5-5.0) g/dL Globulin 3.1 (1.7-4.1) g/dL Albumin/Globulin Ratio 1.5 (1.0-2.8) Lipase 218 (23-300) U/L Point of care testing: Urine Dip Bedside Urine Glucose Negative Bedside Urine Bilirubin - Negative Bedside Urine Ketone - Negative Urine Specific [place] 1.005 Bedside Urine Occult Blood - Negative Bedside Urine pH 8.0 Bedside Urine Protein - Negative Bedside Urine Urobilinogen 0.2 Bedside Urine Nitrite - Negative Bedside Urine Leukocytes - Negative Esterase Imaging Data CT scan - abdomen/pelvis: Radiologist's Impression: PROCEDURE: CT ABDOMEN PELVIS W CON INDICATIONS: upper ab pain recent SBO with ostomy TECHNIQUE: After the administration of intravenous contrast, axial sections acquired from the lung bases to the pubic symphysis. Coronal and sagittal reformats were performed. For radiation dose reduction, the following was used: automated exposure control, adjustment of mA and/or kV according to patient size. COMPARISON: [facility], CT, CT ABDOMEN PELVIS W CON, 07/07/2025, 6:49. FINDINGS: Image quality: Diagnostic. Lower Chest: Patient's known nodule in right lung base is partially visualized. Overall unchanged from prior study. ABDOMEN: Liver: No solid mass. Gallbladder: No radiopaque gallstones or wall thickening. Biliary ducts: No biliary dilation. Pancreas: No ductal dilation. Spleen: Size is within normal limits. Adrenal Glands: No adrenal nodules. Kidneys and Ureters: No hydronephrosis. No solid mass. No complex renal cystic lesion which requires follow up. Stomach and Bowel: Patient is status post interval partial colectomy and construction of left-sided colostomy. Fluid distended small bowel loops in left lower quadrant is seen with swirling of the mesenteric vessels concerning for internal hernia and focal obstruction in this area. Zone of transition is noted in left lower quadrant series 2, images 106 and 88. No abscess collection. Peritoneum: No abnormal intraperitoneal fluid. No free air. Ventral Wall: No significant ventral hernia. Abdominal Nodes: No retroperitoneal or mesenteric adenopathy by size criteria. Vessels: Aorta and inferior vena cava are normal in size. PELVIS: Pelvic Organs: Enlarged prostate gland.. Bladder: Mild bladder wall thickening, no discrete bladder wall mass or calcified bladder stones. Pelvic Nodes: No enlarged lymph nodes. Miscellaneous: No inguinal hernias are seen. Bones: No aggressive osseous abnormality. IMPRESSION: 1. Interval partial colectomy with left-sided colostomy in place. Finding is suggestive of internal hernia with focal moderate to high-grade small bowel obstruction. Zone of transition is noted in left lower quadrant as above. No abscess collection. No free fluid or free air. 2. Other findings are not significantly changed from prior study. Dictated by: Gurpreet Retana M.D. on 08/18/2025 at 10:35 Chest x-ray: Radiologist's Impression: PROCEDURE: XR CHEST 1V INDICATIONS: upper ab pain recent TECHNIQUE: One view of the chest was acquired. COMPARISON: [facility], , XR CHEST 2V, 12/31/2019, 15:04. FINDINGS: Surgical changes and devices: None. Lungs and pleura: No focal infiltrate. Stable likely calcified granuloma in right lower lung field unchanged from prior study. No pleural effusions or pneumothorax. Mediastinum: Mediastinal contours appear normal. Heart size is normal. Bones and chest wall: No suspicious bony lesions. Overlying soft tissues appear unremarkable. IMPRESSION: No acute cardiopulmonary pathology. Dictated by: Gurpreet Retana M.D. on 08/18/2025 at 10:34 Approved by: Gurpreet Retana M.D. on 08/18/2025 at 10:35 ECG Data Attestation: I personally reviewed and interpreted this ECG as follows: Interpretation: Normal sinus rhythm rate 59 VT interval 150 QRS [address] changes no T- wave inversion MDM Narrative Medical decision making narrative: MDM CC: Abdominal Complicating co-morbidities: Recent bowel obstruction from diverticulitis with colostomy Data collected from: Patient Medical records reviewed: Admission July 07 through July 12 Differential considered: Bowel obstruction acid reflux, acute coronary syndrome, acute cholecystitis cholelithiasis pancreatitis Exam documented above, pertinent findings include: Well-appearing 55-year-old male upper abdominal pain no significant lower pain Lab Test results independently reviewed as above. Pertinent findings: WBC, 5.7 no anemia Electrolytes within normal limits Lactate 2.1 with repeat 1.2 Troponin negative Liver enzymes bilirubin within normal limits lipase 218 Independently reviewed EKG as above Sinus rhythm no ischemia Imaging studies independently reviewed: CT abdomen pelvis internal hernia with moderate high-grade small-bowel obstruction transition in left lower quadrant. Chest x-ray no acute cardiopulmonary process Consultations: 1130 Dr. Velazquez, surgery updated on patient's symptoms test results we will be an ED for evaluation Treatments: Dilaudid fluids Re-evaluations: Patient is actually feeling better after Dilaudid Discussion: Patient is a 55-year-old male with recent bowel obstruction diverticulitis and left lower quadrant ostomy presenting today with ongoing upper abdominal pain that comes and goes in waves. Blood work is overall reassuring lactic acid is 2.[address] confirms an internal hernia and a high-grade small-bowel obstruction. Surgery in ED to see and evaluate patient request NG tube and patient will be going to the OR. Discharge Plan Departure Patient Disposition: Admitted As Inpatient Clinical Impression: Hernia, internal Bowel obstruction Qualifiers: Intestinal obstruction type: other intestinal obstruction Intestinal obstruction extent: complete Qualified Code(s): K56.691 - Other complete intestinal obstruction Admit Date/Time: 08/18/25 12:35 Admit Provider: Reg Velazquez
[2025-08-18 09:47] LABS: Add Manual Diff / Slide Review NO; Hematocrit 43.6 % (41-53); Hemoglobin 15.3 g/dL (13.5-17.5); Lymphocytes Absolute Auto 2000 /uL (1100-4500); Mean Corpuscular HGB Conc 35.0 % (30-36); Mean Corpuscular Hemoglobin 31.1 PG (26-34); Mean Corpuscular Volume 88.8 fL (80-100); Platelet Count 286 X10^3/uL (150-400)
[2025-08-18] MEDS: PANTOPRAZOLE 40 MG VIAL IV (09:48)
[2025-08-18 09:59] LABS: Lactate (Lactic Acid) 2.1 mmol/L (0.7-2.1)
[2025-08-18 10:00] LABS: Alanine Aminotransferase 28 IU/L (<50); Albumin 4.8 g/dL (3.5-5.0); Albumin Globulin Ratio 1.5 (1.0-2.8); Alkaline Phosphatase 47 U/L (38-126); Blood Urea Nitrogen 11 mg/dL (9-20); Calcium 9.6 mg/dL (8.4-10.2); Carbon Dioxide 24 mmol/L (22-32); Chloride 103 mmol/L (98-107); Creatine Kinase 81 U/L (55-170); Estimated Glomerular Filt Rate > 60 mL/min (>60); Globulin 3.1 g/dL (1.7-4.1); Glucose 113 mg/dL (70-99); HEMOLYSIS < 15 (0-50); Lipase 218 U/L (23-300); Magnesium 2.0 mg/dL (1.6-2.3); Potassium 4.3 mmol/L (3.4-5.1); Sodium 137 mmol/L (137-145); Total Protein 7.9 g/dL (6.3-8.2)
[2025-08-18 10:11] LABS: NT-proBNP (BNP-Adult 18+) 40 pg/mL (<125); Troponin I < 0.012 ng/mL (0.01-0.034)
--- NOTE | 2025-08-18 10:41 | EKG_ITS ---
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
[2025-08-18 11:19] LABS: Reflexed Lactate in 2 Hours Y
[2025-08-18 11:55] LABS: Lactate 2HR (Lactic Acid Rflx) 1.2 mmol/L (0.7-2.1)
--- NOTE | 2025-08-18 12:14 | PM.HP.IH.1 ---
History of Present Illness History of Present Illness Date Patient Seen: 08/18/25 Time Patient Seen: 12:14 Chief complaint: Severe pain upper abd - localized at stomach Narrative: 55yo M admitting through ED with internal hernia. He had Tiffanie's procedure 07/07/[address] Webb for diverticulitis. He felt well until this morning when he developed severe abdominal cramps so he presented to ED. CT demonstrates small bowel internal hernia around LLQ ostomy with swirling of the mesentery and high grade obstruction. Concerning for potential bowel ischemia and closed loop. Patient had stool effluent in ostomy today. WBC, lactate normal. [facility] Medical History Dyspepsia Direct left inguinal hernia Hyperlipidemia Contraceptive education Tobacco abuse Well adult Surgical History Anesthesia History of appendectomy (~1975) Family History Father Hypertension Mother Arthritis Grandmother Cancer Hypertension Stroke Social History household members: spouse and children Smoking Status: Former smoker Tobacco: How many years used: 30 quit status: has quit before second hand exposure: No alcohol intake: former substance use type: does not use Meds Home Medications and Allergies Home Medications ?Medication ?Instructions ?Recorded ?Confirmed ?Type ascorbic acid (vitamin C) 500 mg 500 mg PO DAILY 06/26/20 07/23/25 History capsule,extended release cholecalciferol (vitamin D3) 125 125 mcg PO DAILY 06/26/20 07/23/25 History mcg (5,000 unit) capsule Allergies Allergy/AdvReac Type Severity Reaction Status Date / Time No Known Drug Allergies Allergy Verified 08/18/25 09:34 Exam Vital Signs (past 8 hours): - 08/18/25 09:29 08/18/25 09:30 08/18/25 09:30 Temperature Pulse Rate 67 Respiratory Rate Blood Pressure 150/71 H Pulse Oximetry 94 100 Oxygen Delivery Method 08/18/25 09:34 08/18/25 10:05 08/18/25 10:30 Temperature 97.8 F Pulse Rate 68 74 57 L Respiratory Rate 18 Blood Pressure 150/71 H Pulse Oximetry 100 100 96 Oxygen Delivery Method Room Air 08/18/25 10:54 08/18/25 10:54 08/18/25 11:00 Temperature Pulse Rate 59 L Respiratory Rate Blood Pressure 128/67 132/68 Pulse Oximetry 100 Oxygen Delivery Method 08/18/25 11:00 Temperature Pulse Rate 57 L Respiratory Rate 12 Blood Pressure Pulse Oximetry 99 Oxygen Delivery Method Oxygen Delivery Method Room Air Const Orientation: alert and oriented x3 Resp Effort & Inspection: normal respiratory effort and able to speak in complete sentences Cardio Rate: regular rate GI Other: ABD: minimal distention without tympany, well healed low midline incision, ostomy appliance in place, non-peritoneal exam Extrem General: no pedal edema and no calf tenderness Objective Labs 08/18/25 09:39 08/18/25 09:39 Labs: Laboratory Results - last 24 hr 08/18/25 08/18/25 09:39 11:30 WBC 5.7 RBC 4.91 Hgb 15.3 Hct 43.6 MCV 88.8 MCH 31.1 MCHC 35.0 RDW 13.2 Plt Count 286 Neut % (Auto) 55.6 Lymph % (Auto) 34.1 [place] % (Auto) 8.2 Eos % (Auto) 1.4 L Baso % (Auto) 0.7 Neut # (Auto) 3200 Lymph # (Auto) 2000 [place] # (Auto) 500 Eos # (Auto) 100 Baso # (Auto) 0 Sodium 137 Potassium 4.3 Chloride 103 Carbon Dioxide 24 BUN 11 Creatinine 0.75 Estimated GFR > 60 BUN/Creatinine Ratio 14.7 Glucose 113 H Lactate 2.1 1.2 Calcium 9.6 Magnesium 2.0 Total Bilirubin 0.9 AST 29 ALT 28 Alkaline Phosphatase 47 Total Creatine Kinase 81 Troponin I < 0.012 NT-Pro-B Natriuret Pep 40 Total Protein 7.9 Albumin 4.8 Globulin 3.1 Albumin/Globulin Ratio 1.5 Lipase 218 Assessment & Plan Assessment and plan (1) Obstructed internal hernia: Status: Acute Plan Plan diagnostic laparoscopy, possible laparotomy, possible bowel resection. The risks, benefits and options regarding the procedure were explained to the patient in detail. Risk discussion included but not limited to: bleeding, infection, bowel resection, open incision. The patient was encouraged to ask questions and they were answered to their satisfaction. The patient understands and is agreeable to proceed. Time-Based Coding :: [TOTAL MINUTES] spent with patient and on the chart (including review of chart, obtaining history, exam, reviewing outside data, placing orders, documenting exam and treatment plan, and counseling patient) on [DATE]. [employer] Document charge(s): Yes Charge Codes Initial inpatient/observation care: [id number]
--- NOTE | 2025-08-18 12:50 | DI.RAD.S_ITS ---
PROCEDURE: XR CHEST 1V INDICATIONS: post NG tube placement TECHNIQUE: One view of the chest was acquired. COMPARISON: [facility], CR, XR CHEST 1V, 08/18/2025, 9:50. FINDINGS: Surgical changes and devices: NG tube tip is in the stomach lumen below the left hemidiaphragm. Lungs and pleura: Again noted is solid nodule in right lower lung zone unchanged from prior studies. No focal infiltrate. No pleural effusions or pneumothorax. Mediastinum: Mediastinal contours appear normal. Heart size is normal. Bones and chest wall: No suspicious bony lesions. Overlying soft tissues appear unremarkable. IMPRESSION: NG tube is seen below the left hemidiaphragm and is in the expected location of stomach lumen. No focal infiltrate, pleural effusion or pneumothorax. Stable right lower lobe lung zone nodule. Dictated by: Gurpreet Retana M.D. on 08/18/2025 at 13:23 Approved by: Gurpreet Retana M.D. on 08/18/2025 at 13:24
[2025-08-18] MEDS: ACETAMINOPHEN IV 1,000 MG/100 ML VIAL 400 MG IV (13:24)
--- NOTE | 2025-08-18 13:55 | SUR.OPER ---
Supine on pink padded OR bed, head on pillow, right arm padded and tucked at side, left arm secured on padded armboard <90 degrees, legs uncrossed, safety belt at thigh, tape over blanket over lower legs . Final position approved by Dr. Velazquez.
[2025-08-18] MEDS: BUPivacaine 0.25% W/ EPI (PF) 30 ML VIAL 60 ML INJ (14:09)
--- NOTE | 2025-08-18 15:11 | PM.OP.1 ---
Operative Date/Time/Diagnoses Date of procedure: 08/18/25 Time of procedure: 15:13 Pre-op diagnosis: SBO due to internal hernia Post-op diagnosis: same Procedure & Clinicians Procedure: Diagnostic laparoscopy, lysis of adhesions Same procedure(s) as scheduled: Yes Indications: 55yo M, presented to ED with SBO, internal hernia with swirling of mesentery, concerning for closed loop. Surgeon: Reg Velazquez Assisted?: No Anesthesia Type: General Operative Notes Findings: Internal hernia between descending colostomy and adhesive band, able to resolve laparoscopically without bowel resection. Closure Type: primary Specimen(s): none sent Applied: none Estimated Blood Loss (mL): 20 Blood products transfused: none Procedure in detail: After informed consent and satisfactory general endotracheal anesthesia, the abdomen was prepped and draped in the usual sterile manner. Prior to induction, we took extra care to ensure the stomach was decompressed via the existing nasogastric tube that was placed in the emergency room. The patient received appropriate antibiotics and DVT prophylaxis. Surgical time-out was performed with all team members in agreement. The pneumoperitoneum was established via a direct cutdown overlying the right rectus muscle lateral to the umbilicus. The skin incision was made with the 11 blade after infiltrating the skin and subcutaneous tissues with 0.25% Marcaine with epinephrine. The subcutaneous tissues were bluntly retracted and the anterior rectus sheath was excised with cautery in a vertical manner. The rectus muscle was bluntly and the posterior rectus sheath and peritoneum were grasped and divided between 2 tonsil clamps. This area was free of adhesion and we are able to easily insert a 12 mm trocar and insufflate the abdominal cavity to a pressure of 15 mmHg with carbon dioxide gas. Two additional 5 mm trocars were inserted under direct vision along the right lateral abdominal wall. The patient was noted to have extensive greater omental adhesions to the midline and these were taken down using the LigaSure device with excellent hemostasis. The patient was noted to have an internal hernia as advertised whereby the bowel had entered an internal opening created by an omental adhesion. The opening was fairly tight and there was a significant amount of small bowel herniated through this opening. The bowel was quite dilated and we took great caution in reducing it as to avoid injury. This was a closed loop obstruction but the bowel was viable. There were additional small bowel to colon and abdominal wall adhesions that were cautiously taken down using laparoscopic Kittner and laparoscopic Metzenbaum scissors. There were additional greater omental and small-bowel adhesions to the lower midline and these were very carefully taken down to avoid bowel obstruction or additional internal hernia configuration. The small bowel was run again and there were no obstructive points noted and the bowel was viable. There was no serosal injury or bowel perforation throughout the procedure. The descending colostomy was viable and in good position. Hemostasis was excellent throughout. At this time we released the pneumoperitoneum and removed the trocars and there was no bleeding noted at the trocar sites. The 0 Vicryl [id number] suture was tied and there were no palpable fascial defects. Additional Marcaine was injected in the trocar sites in the musculature. The skin incisions were closed using 4-0 Monocryl in a subcuticular manner. Dermabond glue was applied as a final dressing. The estimated blood loss was minimal. The instrument, sponge and needle counts were all correct x2. The patient tolerated the procedure well and was extubated in the operating room and transported to the recovery area in stable condition. The time of adhesiolysis was 38 minutes. Complications: none Post-operative Condition: stable Disposition: PACU Plan for aftercare: PACU then hurt
[2025-08-18] MEDS: LACTATED RINGERS 1,000 ML 125 ML IV (16:30)
[2025-08-18 16:56] LABS: Add Manual Diff / Slide Review NO; Hematocrit 39.8 % (41-53); Hemoglobin 13.9 g/dL (13.5-17.5); Lymphocytes Absolute Auto 600 /uL (1100-4500); Mean Corpuscular HGB Conc 34.9 % (30-36); Mean Corpuscular Hemoglobin 30.9 PG (26-34); Mean Corpuscular Volume 88.7 fL (80-100); Platelet Count 261 X10^3/uL (150-400)
[2025-08-18 17:03] LABS: Blood Urea Nitrogen 10 mg/dL (9-20); Calcium 9.1 mg/dL (8.4-10.2); Carbon Dioxide 26 mmol/L (22-32); Chloride 104 mmol/L (98-107); Estimated Glomerular Filt Rate > 60 mL/min (>60); Glucose 112 mg/dL (70-99); HEMOLYSIS < 15 (0-50); Potassium 4.5 mmol/L (3.4-5.1); Sodium 137 mmol/L (137-145)
[2025-08-18 17:04] LABS: Magnesium 1.9 mg/dL (1.6-2.3); Phosphorous 3.5 mg/dL (2.5-4.5)
[2025-08-18] MEDS: BENZOCAINE/MENTHOL 1 LOZ PKT 1 EACH PO (19:58)
[2025-08-18] MEDS: HEPARIN 5,000 UNIT/ML VIAL 5000 UNIT SUBCUT (20:19)
[2025-08-19] MEDS: LACTATED RINGERS 1,000 ML 42 ML IV (00:40)
[2025-08-19] MEDS: LACTATED RINGERS 1,000 ML 125 ML IV ×3 (00:41→16:45)
[2025-08-19] MEDS: BENZOCAINE/MENTHOL 1 LOZ PKT 1 EACH PO (02:38)
[2025-08-19 03:39] VITALS: BP 137/91; PULSE 83; RESP 16; TEMP 36.9; O2SAT 96
[2025-08-19 06:08] VITALS: O2SAT 99
--- NOTE | 2025-08-19 07:14 | P.PN_ITS ---
Subjective Subjective Date Patient Seen: 08/19/25 Time Patient Seen: 07:14 Interval history: POD#1 laparoscopic reduction internal hernia, GOLD NG removed this morning Denies n/v Some flatus in ostomy appliance Exam Vital Signs (past 8 hours): - 08/19/25 03:39 08/19/25 06:08 Temperature 98.5 F Pulse Rate 83 Respiratory Rate 16 Blood Pressure 137/91 H Pulse Oximetry 96 99 Oxygen Delivery Method Room Air Oxygen Delivery Method Room Air Oxygen Flow Rate 0 Const General: comfortable Orientation: alert, awake and oriented x3 Resp Effort & Inspection: normal respiratory effort and able to speak in complete sentences Cardio Rate: regular rate GI Other: ABD: soft, incisions CDI, tenderness appropriate for postop, ND Extrem General: no pedal edema and no calf tenderness Objective Labs 08/18/25 16:47 08/18/25 16:47 Labs: Laboratory Results - last 24 hr 08/18/25 08/18/25 08/18/25 09:39 11:30 16:47 WBC 5.7 13.6 H D RBC 4.91 4.49 L Hgb 15.3 13.9 Hct 43.6 39.8 L MCV 88.8 88.7 MCH 31.1 30.9 MCHC 35.0 34.9 RDW 13.2 13.0 Plt Count 286 261 Neut % (Auto) 55.6 94.1 H D Lymph % (Auto) 34.1 4.7 L D [place] % (Auto) 8.2 1.0 L Eos % (Auto) 1.4 L 0.1 L Baso % (Auto) 0.7 0.1 Neut # (Auto) 3200 96740 H Lymph # (Auto) 2000 600 L [place] # (Auto) 500 100 Eos # (Auto) 100 0 Baso # (Auto) 0 0 Sodium 137 137 Potassium 4.3 4.5 Chloride 103 104 Carbon Dioxide 24 26 BUN 11 10 Creatinine 0.75 0.76 Estimated GFR > 60 > 60 BUN/Creatinine Ratio 14.7 13.2 Glucose 113 H 112 H POC Whole Bld Glucose Lactate 2.1 1.2 Calcium 9.6 9.1 Phosphorus 3.5 Magnesium 2.0 1.9 Total Bilirubin 0.9 AST 29 ALT 28 Alkaline Phosphatase 47 Total Creatine Kinase 81 Troponin I < 0.012 NT-Pro-B Natriuret Pep 40 Total Protein 7.9 Albumin 4.8 Globulin 3.1 Albumin/Globulin Ratio 1.5 Lipase 218 08/19/25 03:33 WBC RBC Hgb Hct MCV MCH MCHC RDW Plt Count Neut % (Auto) Lymph % (Auto) [place] % (Auto) Eos % (Auto) Baso % (Auto) Neut # (Auto) Lymph # (Auto) [place] # (Auto) Eos # (Auto) Baso # (Auto) Sodium Potassium Chloride Carbon Dioxide BUN Creatinine Estimated GFR BUN/Creatinine Ratio Glucose POC Whole Bld Glucose 114 H Lactate Calcium Phosphorus Magnesium Total Bilirubin AST ALT Alkaline Phosphatase Total Creatine Kinase Troponin I NT-Pro-B Natriuret Pep Total Protein Albumin Globulin Albumin/Globulin Ratio Lipase PFSH Medical History Dyspepsia Direct left inguinal hernia Hyperlipidemia Contraceptive education Tobacco abuse Well adult Surgical History Anesthesia History of appendectomy (~1975) Family History Father Hypertension Mother Arthritis Grandmother Cancer Hypertension Stroke Social History household members: spouse and children Smoking Status: Former smoker Tobacco: How many years used: 30 quit status: has quit before second hand exposure: No alcohol intake: former substance use type: does not use Assessment & Plan Assessment and plan (1) Hernia, internal: Status: Acute Plan POD#1 laparoscopic reduction internal hernia/GOLD NG out this morning Start clear liquids I anticipate earlier resolution of expected ileus based upon appearance of small bowel at surgery Time-Based Coding :: [TOTAL MINUTES] spent with patient and on the chart (including review of chart, obtaining history, exam, reviewing outside data, placing orders, documenting exam and treatment plan, and counseling patient) on [DATE]. 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
[2025-08-19] MEDS: HEPARIN 5,000 UNIT/ML VIAL 5000 UNIT SUBCUT ×2 (09:43→21:20)
[2025-08-19 15:10] VITALS: BP 130/80; PULSE 64; RESP 14; TEMP 36.9; O2SAT 97
[2025-08-19 19:00] VITALS: O2SAT 98
[2025-08-19 20:20] VITALS: BP 123/67; PULSE 66; RESP 18; TEMP 36.5; O2SAT 98
[2025-08-20] MEDS: PANTOPRAZOLE DR 20 MG TABLET PO (06:32)
[2025-08-20 06:36] LABS: Labcorp Creatine Kinase MB 2.4 ng/mL (0.0-10.4)
--- NOTE | 2025-08-20 07:14 | PM.DS.IH.1 ---
History of Present Illness History of Present Illness Date Patient Seen: 08/20/25 Time Patient Seen: 07:15 Chief complaint: Severe pain upper abd - localized at stomach Narrative: 55yo M admitting through ED with internal hernia. He had Tiffanie's procedure 07/07/[address] Webb for diverticulitis. He felt well until this morning when he developed severe abdominal cramps so he presented to ED. CT demonstrates small bowel internal hernia around LLQ ostomy with swirling of the mesentery and high grade obstruction. Concerning for potential bowel ischemia and closed loop. Patient had stool effluent in ostomy today. WBC, lactate normal. Discharge Providers Provider Date of admission: 08/18/25 12:35 Discharge Date: 08/20/25 Primary care physician: Jose Cody DO Discharge provider: Reg Velazquez MD Summary Hospital Course Discharge Diagnosis: SBO due to internal hernia Hospital Course: Patient presented through ED with SBO due to internal hernia. Laparoscopic GOLD performed, able to reduce internal hernia. Small bowel had herniated into an opening created by adhesions to his descending colostomy performed for diverticulitis. Patient tolerated clear liquids the next day and then regular diet. He was discharged home on POD#2. Will see him in office for postop. Status at Discharge Cognitive/behavioral status at discharge: oriented Functional status at discharge: independent ambulation Overall status at discharge: patient is progressing back to baseline Time Spent with Patient Time spent: Greater than 30 minutes Exam Vital Signs (past 8 hours): Oxygen Delivery Method Room Air Oxygen Flow Rate 0 Const General: comfortable Orientation: alert, awake and oriented x3 Resp Effort & Inspection: normal respiratory effort and able to speak in complete sentences Cardio Rate: regular rate GI Other: ABD: soft, ND, approp tender, ostomy with gas and stool, incisions CDI Extrem General: no pedal edema and no calf tenderness Objective Labs 08/18/25 16:47 08/18/25 16:47 Labs: Laboratory Results - last 24 hr 08/18/25 16:47 CK-MB (CK-2) 2.4 PFSH Medical History Dyspepsia Direct left inguinal hernia Hyperlipidemia Contraceptive education Tobacco abuse Well adult Surgical History Anesthesia History of appendectomy (~1975) Family History Father Hypertension Mother Arthritis Grandmother Cancer Hypertension Stroke Social History household members: spouse and children Smoking Status: Former smoker Tobacco: How many years used: 30 quit status: has quit before second hand exposure: No alcohol intake: former substance use type: does not use Discharge Assessment & Plan Assessment and Plan Assessment: POD#2 laparoscopic GOLD, reduction internal hernia Plan of Treatment: Home today Discharge Plan Discharge Plan Patient Disposition: Home Provider Discharge Comment: Regular diet No carbonation Shower OK, no swimming for 2 weeks Please call office for postop appt in 2 weeks No lifting restrictions Discharge orders & Medications Prescriptions: Continued cholecalciferol (vitamin D3) 125 mcg (5,000 unit) capsule 125 mcg PO DAILY ascorbic acid (vitamin C) 500 mg capsule, extended release 500 mg PO DAILY Follow up/Referrals: Jose Cody DO [Primary Care Provider, Family Practice] Reg Velazquez MD [Physician, General Surgery] Diet/Activity/Treatments Diet: Diet as Tolerated Skin/Wound/Dressing Care Report to your healthcare provider any signs of infection, such as:: chills, fever, night sweats, increased pain, unusual drainage and unusual redness Visit Report/Discharge Packet Stand Alone Forms: Patient Portal/API, Stroke Signs & Symptoms Discharge Data Primary Care Provider: Jose Cody PROFEE Charge Codes Discharge inpatient/observation: [id number]
--- NOTE | 2025-08-20 08:38 | CM.DANOTE ---
Late Entry: Visit completed on 08/19/25 Initial DCP Assessment Visit Note Reviewed EMR and team rounds for pt's medical status and updates. Met with pt at bedside to introduce self and role, pt was found to be alert/oriented, in no pain, and conversive about his needs and plan for home d/c. Pt resides independently with his spouse in their own home in [place]. Today is has been medically cleared for home d/c, his spouse will transport him home around noon. No CM d/c or resource needs are identified at this time. Payor: Arielle THAKKAR Attending: Dr. Velazquez Pt is a 55 year-old M with a hx of diverticulitis, and a recent hospitalization in June for a large bowel obstruction. He had an open sigmoid resection and colostomy at this time. He presented to the ED with c/o acute epigastric pain. CT abd/pelvisshowed a hernia with a mod-high grade small bowel obstruction. Surgery was consulted, and plan was made to admit for hernia repair and lysis of adhesions surgical fixation. He has done well postoperatively, has well controlled pain, and is ready for d/c. He will f/u with Dr. Velazquez within the next few weeks. 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 No History Provided By Patient,Medical Record Has Patient been No admitted in last 30 days? Prior Living House Arrangements Household Members spouse,children Type of Drives own vehicle transporation used prior to admit Independent with ADL Yes 's Is patient alert and Yes oriented? Caregiver for No Another Comment N/A Comment No identified home d/c needs at this time. Barriers to No Discharge Discharge Plan Home Transportation Family Arrangement Referrals Initiated None needed Whiteboard Updated Yes in Patient Room with name and ext. # of [place] [facility]ander Review Status In Process Please Provide Date 08/20/25 Initial DC Assessment Was Performed
--- NOTE | 2025-08-20 11:43 | PC.NURSE ---
Patient tolerated breakfast without nausea or pain. Patient has been ambulatory around unit, without difficulty. Voiding in bathroom, reports gas in colostomy but no stool yet. Lap sites x 3 intact without drainage. Discharge instructions reviewed with patient and his , he states understanding and has no further questions or concerns at this time. Patient will follow up with Dr. Velazquez in 2 weeks. Escorted out with his , declines wheelchair. IV removed intact.
== END 2025-08-20 11:20 | disposition home or self-care (01) | DRG 336 ==
LOC: ED 12:28 → AC 12:36
PROVIDERS: Admitting Provider Surgery; Emergency Provider Emergency Medicine; PCP Family Medicine; Referring Provider Emergency Medicine; Visit Provider Surgery
PROC: 0DNU4ZZ Release Omentum, Percutaneous Endoscopic Approach (ICD-10-PCS; CPT 49320; principal; 2025-08-18 13:00)
DX: K45.0 Other specified abdominal hernia with obstruction, without gangrene (principal); K56.50 Intestinal adhesions [bands], unspecified as to partial versus complete obstruction; Z93.3 Colostomy status; Z87.891 Personal history of nicotine dependence; Z87.19 Personal history of other diseases of the digestive system
CPT/HCPCS: 36415; 49010; 71045; 74177; 80048; 80053; 81003; 82550; 82553; 82962; 83605; 83690; 83735; 83880; 84100; 84484; 85025; 93005; 96374; 96375; 99222; 99284; J0131; J0330; J0689; J1100; J1171; J1644; J1885; J2250; J2405; J2470; J2704; J3010; Q9967

== ENCOUNTER → 2025-08-21 14:44 | Outpatient (CLI) | payer OTHER, SELFPAY ==
[2025-08-18 15:54] VITALS: BMI 15.7
== END ==
LOC: WC 14:45
PROVIDERS: PCP Family Medicine; Referring Provider Family Medicine; Visit Provider Surgery
DX: K94.09 Other complications of colostomy (principal); S31.101A Unspecified open wound of abdominal wall, left upper quadrant without penetration into peritoneal cavity, initial encounter; L92.9 Granulomatous disorder of the skin and subcutaneous tissue, unspecified
CPT/HCPCS: 17250; 99213

== ENCOUNTER → 2025-08-28 15:58 | Outpatient (CLI) | payer OTHER, SELFPAY ==
[2025-08-18 15:54] VITALS: BMI 15.7
== END ==
LOC: WC 16:00
PROVIDERS: PCP Family Medicine; Referring Provider Family Medicine; Visit Provider Surgery
DX: Z93.3 Colostomy status (principal)
CPT/HCPCS: 99212; 99213